=== PATIENT | male | born 1965 | race Caucasian/White ===

== ENCOUNTER 2016-11-24 10:28 | Outpatient (REF) ==
--- NOTE | 2016-11-24 10:54 | DI ---
EXAM: Chest two views HISTORY: Screening COMPARISON: 12/18/2014 TECHNIQUE: Two views of the chest were performed FINDINGS: The lungs are clear. Mild chronic elevation right hemidiaphragm, unchanged There is no pl eural effusion or pneumothorax. The heart is normal in size. The mediastinal contour is normal. T here are no acute abnormalities of the bones. IMPRESSION: No acute cardiopulmonary process.
== END 2016-11-24 10:29 | disposition home or self-care (01) ==
LOC: RAD 10:28
DX: Z02.89 Encounter for other administrative examinations (principal)